=== PATIENT | female | born 2005 | race Caucasian/White ===

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

== ENCOUNTER 2024-11-29 16:33 | Emergency (ER) | payer BC ==
[2024-11-29 17:08] VITALS: BP 102/54; PULSE 79; RESP 18; TEMP 98.4; BMI 22.6
[2024-11-29 19:45] LABS: INR 1.15 (0.83-1.09); PROTHROMBIN TIME (PATIENT) 12.7 SEC (9.7-13.0)
[2024-11-29 19:48] LABS: ACTIVATED PTT 37.4 SECONDS (25.2-36.5)
== END 2024-11-29 19:45 | disposition home or self-care (01) ==
LOC: JERFT 16:33 → JER 16:33 → JERFT 19:45
DX: S61.412A Laceration without foreign body of left hand, initial encounter (principal); R29.898 Other symptoms and signs involving the musculoskeletal system; D68.1 Hereditary factor XI deficiency; R20.0 Anesthesia of skin; W26.0XXA Contact with knife, initial encounter; Y92.009 Unspecified place in unspecified non-institutional (private) residence as the place of occurrence of the external cause; Y93.G1 Activity, food preparation and clean up
CPT/HCPCS: 36415; 85270; 85610; 85730; 99283-25